=== PATIENT | male | born 1970 | race Hispanic/Latino ===

== ENCOUNTER 2017-03-17 00:12 | Emergency (ER) | payer BC ==
--- NOTE | 2017-03-17 09:23 | RAD ---
TWO VIEWS OF THE CHEST Comparison: 06-06-07 History: Cough. FINDINGS: Two views of the chest show normal sized cardiomediastinal silhouette. There is no evidence of consol idation, mass, or pleural effusion. The bones are unremarkable. The patient has a left nipple piercin g. IMPRESSION: No evidence of acute cardiopulmonary disease. POS: [facility]
== END 2017-03-17 02:51 | disposition home or self-care (01) ==
LOC: ERS 00:12
DX: J18.9 Pneumonia, unspecified organism (principal); F17.210 Nicotine dependence, cigarettes, uncomplicated
CPT/HCPCS: 71046; 87081; 87430

== ENCOUNTER 2017-03-17 16:55 | Emergency (ER) | payer BC ==
[2017-03-17 17:31] LABS: #Basophils 0.1 thou/uL (0.0-0.2); #Lymphocytes 0.6 thou/uL (1.20-3.40); #Monocytes 0.8 thou/uL (0.11-0.59); #Neutrophils 4.7 thou/uL (1.40-6.50); %Basophils 1.2 % (0.0-1.0); %Eosinophils 0.3 % (0.0-10.0); %Lymphocytes 10.2 % (21.0-51.0); %Monocytes 12.3 % (0.0-10.0); %Neutrophils 76.2 % (42.0-75.0); Hemoglobin 13.9 g/dL (14.0-18.0); Mean Corpuscular HGB CONC 33.4 g/dL (32.0-36.0); Mean Corpuscular Hemoglobin 31.4 pg (27.0-31.0); Mean Corpuscular Volume 93.9 fl (80.0-94.0); Mean Platelet Volume 6.9 fL (7.4-10.4); Platelet Count 274 thou/uL (130-400); RBC Distribution Width 12.1 % (11.5-14.5); Red Blood Cell (RBC) Count 4.43 mill/uL (4.70-6.10); White Blood Cell (WBC) Count 6.1 thou/uL (4.8-10.8)
[2017-03-17 18:00] LABS: ALT (SGPT) 25 U/L (8-55); AST (SGOT) 43 U/L (5-34); Albumin 3.8 g/dL (3.5-5.0); Alkaline Phosphatase 77 U/L (40-150); Anion Gap 12 mmol/L (10-20); BUN (Urea Nitrogen) 12 mg/dL (8.9-20.6); Bilirubin, Total 0.6 mg/dL (0.2-1.2); Calc. Creatinine Clearance 0 mL/min (70-130); Calcium 8.9 mg/dL (7.8-10.44); Carbon Dioxide 26 mmol/L (22-29); Chloride 104 mmol/L (98-107); Estimated GFR-MDRD Greater than 90; Glucose 119 mg/dL (70-105); Lipase 13 U/L (8-78); Potassium 3.7 mmol/L (3.5-5.1); Protein, Total 6.8 g/dL (6.0-8.3); Sodium 138 mmol/L (136-145)
--- NOTE | 2017-03-17 18:03 | CT ---
NONCONTRAST CT ABDOMEN AND PELVIS 03/17/17 HISTORY: Left flank pain. Patient states back pain that radiates to the left sided ribs with onset of symptoms last night and associated coughing. COMPARISON: None available. FINDINGS: There are a few punctate nonobstructing calculi in the inferior pole left kidney. No right renal calc ulus is present. There is no evidence of hydronephrosis. Near the region of the right UVJ and at the base of the urinary bladder there is an approximately 3 mm calculus present. This is thought to be ju st within the right UVJ, but again, there is no hydroureter or hydronephrosis seen on the right. Atelectasis is present at the left lung base. There is slight heterogeneity of the liver which may re present fatty infiltration with areas of fatty sparing. The spleen, pancreas and bilateral adrenal glands demonstrate a normal CT appearance. The appendix is visualized and normal in caliber. No free fluid, fluid collection, or lymphadenopathy is seen in the abdomen or pelvis. No dilated loop s of bowel are seen. Osseous structures are intact. IMPRESSION: 1. Findings likely related to a calculus either at the right UVJ or just within the base of the urinary bladder adjacent to the right UVJ measuring 3 mm. There is no right hydronephrosis or hydrour eter. 2. Tiny punctate nonobstructing inferior pole left renal calculi. 3. Heterogeneity of the liver which may represent fatty infiltration with areas of fatty sparing . Correlation with liver function tests may be helpful for further evaluation. POS: [facility]
[2017-03-17] MEDS ORDERED: Ketorolac Tromethamine 30 MG/ML VIAL ONE (18:35)
== END 2017-03-17 19:13 | disposition home or self-care (01) ==
LOC: ERS 16:55
DX: N20.2 Calculus of kidney with calculus of ureter (principal); F17.210 Nicotine dependence, cigarettes, uncomplicated; Z79.899 Other long term (current) drug therapy
CPT/HCPCS: 71046; 74176; 80053; 83690; 85025; 87081; 87430; 96374; J1885

== ENCOUNTER 2019-03-15 13:56 | Observation (INO) | payer BC ==
[~2019-03-15 13:56] MED LIST: Iopamidol-370 76% 500 ML 1 ML ONE
--- NOTE | 2019-03-15 14:26 | RAD ---
XR Chest 1 View Portable HISTORY: Blurred vision, weakness COMPARISON: 03/17/2017 FINDINGS: The heart size is stable. The lungs are well expanded without focal areas of consolidation, pneumothorax or pleural effusions. IMPRESSION: No radiographic evidence of acute cardiopulmonary process.
[2019-03-15 14:36] LABS: #Basophils 0.1 thou/uL (0.0-0.2); #Eosinphils 0.1 thou/uL (0.0-0.7); #Lymphocytes 2.6 thou/uL (1.20-3.40); #Monocytes 0.9 thou/uL (0.11-0.59); #Neutrophils 6.1 thou/uL (1.40-6.50); %Basophils 0.9 % (0.0-1.0); %Eosinophils 1.4 % (0.0-10.0); %Monocytes 9.5 % (0.0-10.0); %Neutrophils 62.3 % (42.0-75.0); Hemoglobin 14.5 g/dL (14.0-18.0); Mean Corpuscular HGB CONC 34.1 g/dL (32.0-36.0); Mean Corpuscular Hemoglobin 31.1 pg (27.0-31.0); Mean Corpuscular Volume 91.2 fL (78.0-98.0); Mean Platelet Volume 7.4 fL (7.4-10.4); Platelet Count 371 thou/uL (130-400); RBC Distribution Width 12.1 % (11.5-14.5); Red Blood Cell (RBC) Count 4.66 mill/uL (4.70-6.10); White Blood Cell (WBC) Count 9.8 thou/uL (4.8-10.8)
[2019-03-15 14:55] LABS: ALT (SGPT) 18 U/L (8-55); AST (SGOT) 47 U/L (5-34); Albumin 3.5 g/dL (3.5-5.0); Alkaline Phosphatase 91 U/L (40-110); Anion Gap 9 mmol/L (10-20); BUN (Urea Nitrogen) 18 mg/dL (8.4-25.7); Bilirubin, Total 0.4 mg/dL (0.2-1.2); Calc. Creatinine Clearance 0 mL/min (70-130); Calcium 8.6 mg/dL (7.8-10.44); Carbon Dioxide 27 mmol/L (22-29); Chloride 108 mmol/L (98-107); Estimated GFR-MDRD 45; Globulin 3.1 g/dL (2.4-3.5); Glucose 114 mg/dL (70-105); Protein, Total 6.6 g/dL (6.0-8.3); Sodium 140 mmol/L (136-145)
--- NOTE | 2019-03-15 15:15 | CT ---
CT Aortic Dissection Protocol HISTORY: Abdominal pain, blurred vision, hypertension, right arm numbness COMPARISON: None. FINDINGS: The thoracoabdominal aorta is of normal caliber without intimal flap. There is no evidence of dissect ion or aneurysm. The aortic lumen is well opacified. There is good flow in the renal arteries, celiac axis, SMA and NOHEMY. No significant stenosis at the origins is seen. No pleural or pericardial effusions are identified. No pneumothoraces, focal areas of consolidation, lung nodules or masses are seen. There is fatty infiltration of the liver. The gallbladder is contracted. The spleen, pancreas, adrena l glands and kidneys appear normal. No free air or free fluid is seen in the abdomen. There are degenerative changes in the thoracic lumbar spine. IMPRESSION: No CT evidence of aortic aneurysm or dissection.
[2019-03-15] MEDS ORDERED: hydrALAZINE 20 MG/ML VIAL ONE (15:33)
--- NOTE | 2019-03-15 16:39 | PDOC.FPRHP ---
- History of Present Illness Chief Complaint: Blurry vision and elevated BP History of Present Illness: 49 yo male with no PMH presents for evaluation of elevated BP and blurry vision. Patient reports his BP he checked at home was approximately 200/113 and he felt funny. He notes he has a machine at home and this surprised him. He notes his blurry vision is likely secondary to being sleep deprived from an overnight shift at work. He also notes he had some right hand/finger tingling, but attributes that to sleeping on his side. He notes that he has not had any chest pain, unilateral weakness, or headaches. He reports that he has never been told he has BP issues and has not seen a physician in almost 2 years. No other complaints. ED Course: 20 mg IV Hydralazine - Allergies/Adverse Reactions Allergies Allergy/AdvReac Type Severity Reaction Status Date / Time No Known Allergies Allergy Unverified 03/15/19 17:43 - History PMHx:None PSHx: None FHx: Heart Disease, DM Social: 1/2 pack per day smoking. Previous 20 year pack history and just recently restarted. No illicit drug use. Social alcohol use. - Review of Systems General: denies: fever/chills, weight/appetite/sleep changes ENT: denies: nasal congestion, rhinorrhea Respiratory: denies: cough, congestion, shortness of breath Cardiovascular: denies: chest pain, palpitation Gastrointestinal: denies: nausea, vomiting, diarrhea Genitourinary: denies: dysuria, polyuria Skin: denies: rashes, lesions Musculoskeletal: denies: pain, tenderness, stiffness, swelling Neurological: reports: numbness. denies: syncope, seizure Psychological: denies: anxiety, depression - Vital signs BP: 159/86 HR: 92 RR: 17 Tmax: 98.2 Pox: 98% on RoomAir Wt: 113 kg - Physical Exam Constitutional: NAD, awake, alert and oriented HEENT: normocephalic and atraumatic, PERRLA, grossly normal vision, grossly normal hearing, normal nasal mucosa Neck: supple, FROM Chest: no-tender to palpation Heart: RRR, normal S1/S2, no murmurs/rubs/gallops Lungs: CTAB, no respiratory distress Abdomen: soft, non-tender, bowel sounds present Musculoskeletal: normal structure, normal tone, ROM grossly normal Neurological: no focal deficit, CN II-XII intact, normal sensation Skin: no rash/lesions, good turgor, capillary refill <2 seconds Heme/Lymphatic: no unusual bruising or bleeding, no purpura Psychiatric: normal mood and affect, good judgment and insight, intact recent and remote memory FMR H&P: Results - Labs Result Diagrams: 03/15/19 14:26 03/15/19 14:26 Lab results: WBC 9.8 thou/uL (4.8-10.8) 03/15/19 14:26 Hgb 14.5 g/dL (14.0-18.0) 03/15/19 14:26 Hct 42.5 % (42.0-52.0) 03/15/19 14: MCV 91.2 fL (78.0-98.0) 03/15/19 14:26 Plt Count 371 thou/uL (130-400) 03/15/19 14:26 Neutrophils % 62.3 % (42.0-75.0) 03/15/19 14:26 Sodium 140 mmol/L (136-145) 03/15/19 14:26 Potassium 4.0 mmol/L (3.5-5.1) 03/15/19 14:26 Chloride 108 mmol/L (98-107) H 03/15/19 14:26 Carbon Dioxide 27 mmol/L (22-29) 03/15/19 14:26 BUN 18 mg/dL (8.4-25.7) 03/15/19 14:26 Creatinine 1.64 mg/dL (0.7-1.3) H 03/15/19 14:26 Glucose 114 mg/dL (70-105) H 03/15/19 14:26 Calcium 8.6 mg/dL (7.8-10.44) 03/15/19 14:26 Total Bilirubin 0.4 mg/dL (0.2-1.2) 03/15/19 14:26 AST 47 U/L (5-34) H 03/15/19 14:26 ALT 18 U/L (8-55) 03/15/19 14:26 Alkaline Phosphatase 91 U/L (40-110) 03/15/19 14:26 Serum Total Protein 6.6 g/dL (6.0-8.3) 03/15/19 14:26 Albumin 3.5 g/dL (3.5-5.0) 03/15/19 14:26 - EKG Interpretation EK lead EKG shows normal sinus rhythm, Rate (beats per minute): 86, with no ectopics, Conduction normal, ST segments normal, T waves normal, Ethel normal, Clinical impression: Normal EKG. FMR H&P: A/P - Problem List (1) Hypertensive urgency Current Visit: Yes Status: Acute Code(s): I16.0 - HYPERTENSIVE URGENCY (2) ROSELINE (acute kidney injury) Current Visit: Yes Status: Acute Code(s): N17.9 - ACUTE KIDNEY FAILURE, UNSPECIFIED - Plan 1. HTN urgency - No chronic BP treatment - s/p 1 dose 20 mg Hydralazine with good control - continue cardiac monitoring - trend troponins - Initiate chronic BP treatment in AM - labs ordered to risk stratify 2. ROSELINE - Baseline in 2018 <1.0 - Gentle IVF - Control BP PCP: Dr. Quesada CODE STATUS: FULL CODE Disposition: Stable, will admit for observation for further evaluation and management.
[2019-03-15 16:40] LABS: Troponin I 0.011 ng/mL (< 0.028)
[2019-03-15] MEDS ORDERED: Ondansetron ODT 4 MG TAB SL PRN (17:43)
[2019-03-15] MEDS ORDERED: Ondansetron PF 4 MG/2 ML Vial IVP PRN (17:43)
[2019-03-15 17:49] VITALS: BMI 39.3
[2019-03-15] MEDS ORDERED: hydrALAZINE 20 MG/ML VIAL SLOW IVP PRN ×2 (18:13→18:23)
[2019-03-15] MEDS ORDERED: Ondansetron ODT 4 MG TAB PO PRN (18:13)
[2019-03-15] MEDS: Lactated Ringer's 1,000 ML IV SCH (19:11)
[2019-03-15 19:59] LABS: Phosphorus 1.9 mg/dL (2.3-4.7)
[2019-03-15 20:05] LABS: Troponin I Less than 0.010 ng/mL (< 0.028)
[2019-03-15] MEDS: PHOS-NAK 1 PKT PACK PO SCH (21:50)
[2019-03-16] MEDS: Lactated Ringer's 1,000 ML IV SCH (05:04)
[2019-03-16 05:35] LABS: Anion Gap 10 mmol/L (10-20); BUN (Urea Nitrogen) 17 mg/dL (8.4-25.7); Calc. Creatinine Clearance 122 mL/min (70-130); Calcium 8.3 mg/dL (7.8-10.44); Carbon Dioxide 26 mmol/L (22-29); Cardiac Risk 5.4 (Less than 4.5); Chloride 107 mmol/L (98-107); Cholesterol 167 mg/dl (< 200 Desired); Estimated GFR-MDRD 67; Glucose 107 mg/dL (70-105); HDL Cholesterol 31 mg/dL (>60 Neg Risk); LDL Cholesterol, Calculated 99 mg/dL; Potassium 4.1 mmol/L (3.5-5.1); Sodium 139 mmol/L (136-145); Triglycerides 185 mg/dL (Less than 150)
[2019-03-16] MEDS: Acetaminophen 325 MG TAB PO PRN ×2 (05:38→10:20)
--- NOTE | 2019-03-16 05:45 | PDOC.FM ---
- Subjective Subjective: Pt states he is feeling better this morning. Denies any continuation of his blurred vision. States that he has not seen a doctor in quite a while because he had been feeling well. Is agreeable to starting oral antihypertensives today and closely following up with Dr. Quesada, his PCP. Pt able to take home BP - instructed to keep log of PCP follow up. - Objective Vital Signs & Weight: Vital Signs (12 hours) Temp Pulse Resp BP BP Pulse Ox 03/16/19 05:01 70 173/102 H 03/16/19 04:00 98.0 F 76 18 175/99 H 98 03/16/19 00:00 82 15 169/92 H 03/15/19 20:05 98.2 F 75 16 150/72 H 98 Weight Weight 112.899 kg I&O: 03/14/19 03/15/19 03/16/19 06:59 06:59 06:59 Intake Total 1461 Balance 1461 Result Diagrams: 03/15/19 14:26 03/16/19 04:46 Phys Exam - Physical Examination Constitutional: NAD HEENT: moist MMs, sclera anicteric Neck: full ROM Respiratory: no wheezing, no rales, no rhonchi, clear to auscultation bilateral Cardiovascular: RRR, no significant murmur Gastrointestinal: soft, non-tender Obese Musculoskeletal: no edema, pulses present Neurological: moves all 4 limbs Psychiatric: normal affect, A&O x 3 Skin: cap refill <2 seconds Dx/Plan (1) ROSELINE (acute kidney injury) Code(s): N17.9 - ACUTE KIDNEY FAILURE, UNSPECIFIED Status: Resolved (2) Hypertensive urgency Code(s): I16.0 - HYPERTENSIVE URGENCY Status: Acute - Plan Plan: HTN urgency - Risk stratification labs - A1C: 6 - FLP, mildly elevated TG's, otherwise normal - TSH nml - Troponins remained negative - Will initiate lisinopril/hctz this morning, trend BP's for the remainder of the day and likely DC early this afternoon with close PCP f/u ROSELINE - Resolving w/ BP improvement and gentle IVF PCP: Dr. Quesada CODE STATUS: FULL CODE Disposition: Expect DC later today following PO anti-hypertensive this am and trending BP Addendum - Attending - Attending Attestation Date/Time: 03/16/19 1327 I personally evaluated the patient and discussed the management with Dr. Bernard I agree with the History, Examination, Assessment and Plan documented above with any addition or exceptions noted below. Patient feeling better this AM denies blurred vision, MEDEIROS, chest pain. His ROSELINE improved gradual lowering of BP with start of po medication and close outpatient f/u with PCP.
[2019-03-16] MEDS: PHOS-NAK 1 PKT PACK PO SCH (08:24)
[2019-03-16] MEDS ORDERED: Lisinopril/Hydrochlorothiazide 10 mg/12.5 mg Tablet PO SCH (11:00)
[2019-03-16 11:55] VITALS: BP 152/89; TEMP 97.9
--- NOTE | 2019-03-16 20:45 | DIS ---
DATE OF ADMISSION: 03/15/2019 DATE OF DISCHARGE: 03/16/2019 ADMITTING ATTENDING: Becky Rome MD DISCHARGE ATTENDING: Amanuel Dodson MD. CONSULT: None. PROCEDURES: None. RESIDENT: Kike Bernard DO. IMAGING: Chest x-ray, finding, no radiographic evidence of acute cardiopulmonary process. CT aortic dissection protocol, findings; no CT evidence of aortic aneurysm or dissection. PRIMARY DIAGNOSES: Hypertensive emergency, acute kidney injury. DISCHARGE MEDICATIONS: Lisinopril hydrochlorothiazide 10/12.5 mg one tablet daily. HISTORY OF PRESENT ILLNESS AND HOSPITAL COURSE: A 49-year-old male with no past medical history, presented to the ED for evaluation of elevated blood pressure and blurred vision. The patient reported blood pressure at home of 200/113, as well as blurred vision that had started that day. Workup in the ED showed pressures of greater than 200 systolic. The patient was given 20 mg of IV hydralazine reducing his pressure to 159/86. By the time of evaluation, the patient stated that his vision had improved and denied any symptoms. Laboratory workup was significant for a creatinine of 1.64, this was an elevation from his previous baseline of 0.8. The patient was subsequently admitted to the hospital for blood pressure monitoring and treatment of his hypertensive emergency. The patient received another dose of 20 mg of hydralazine the following morning, which continued to maintain his blood pressures less than 180 systolic. On the time of evaluation the day of discharge, the patient was completely asymptomatic. His repeat creatinine showed improvement and resolution of his ROSELINE with a creatinine within normal limits of 1.15. The patient also had a fasting lipid panel that was overall normal aside from mildly elevated triglycerides at 185. The patient's hemoglobin A1c resulted at 6.0. The patient was subsequently started on a combination of lisinopril and hydrochlorothiazide to continue as an outpatient. The patient was educated on the importance of close outpatient followup for monitoring of his blood pressure and his prediabetes. The patient expressed understanding and agreed to follow up with his PCP, Dr. Quesada closely. DISCHARGE INSTRUCTIONS: 1. Location: Home. 2. Diet: Carb conscious. 3. Activity: No restrictions. 4. Follow up with PCP, Dr. Quesada within 7 days. Job ID: [id number]
[2019-03-17] MEDS ORDERED: Lisinopril/Hydrochlorothiazide 10 mg/12.5 mg Tablet PO SCH (09:00)
== END 2019-03-16 14:11 | disposition home or self-care (01) ==
LOC: ERS 13:56 → 2SW 17:47
PROVIDERS: ADMIT Family Medicine; ATTEND Family Medicine
DX: I16.1 Hypertensive emergency (principal); I10 Essential (primary) hypertension; N17.9 Acute kidney failure, unspecified; F17.210 Nicotine dependence, cigarettes, uncomplicated
CPT/HCPCS: 36415; 71045; 71275; 72191; 74175; 80048; 80053; 80061; 83036; 83735; 84100; 84443; 84484; 85025; 93005; 96361; 96374; 96376; G0378; J0360; Q9967

== ENCOUNTER 2024-02-07 11:27 | Inpatient (IN) | payer BC ==
[2024-02-07 12:35] LABS: #Basophils Less than 0.03 10x3/uL (0.0-0.2); #Eosinophils Less than 0.03 10x3/uL (0.0-0.7); %Basophils 0.2 % (0.0-1.0); %Lymphocytes 3.3 % (21.0-51.0); %Monocytes 7.6 % (0.0-10.0); %Neutrophils 88.2 % (42.0-75.0); Hematocrit 25.6 % (42.0-52.0); Hemoglobin 8.6 g/dL (14.0-18.0); Mean Corpuscular HGB CONC 33.6 g/dL (32.0-36.0); Mean Corpuscular Hemoglobin 30.3 pg (27.0-31.0); Mean Corpuscular Volume 90.1 fL (78.0-98.0); Mean Platelet Volume 9.2 fL (7.4-10.4); Platelet Count 266 10x3/uL (130-400); RBC Distribution Width 13.9 % (11.5-14.5); Red Blood Cell (RBC) Count 2.84 mill/uL (4.70-6.10)
[2024-02-07 12:49] LABS: Actual Bicarbonate (HCO3v) 26.4 mEq/L (22-28); Base Excess 2.2 mEq/L (-2.0 to +3.0); Calcium, Ionized (venous) 0.93 mmol/L (1.16-1.32); Chloride (VBG) 92 mmol/L (98-106); Hematocrit-VBG 31 % (42.0-52.0); Hemoglobin (Hb) 10.6 g/dL (13.1-17.2); Potassium (VBG) 4.32 mmol/L (3.70-5.30); Sodium 133 mmol/L (133-146)
[2024-02-07 12:52] LABS: ALT (SGPT) 11 U/L (8-55); AST (SGOT) 30 U/L (5-34); Albumin 3.1 g/dL (3.5-5.0); Alkaline Phosphatase 58 U/L (40-110); Anion Gap 18 mmol/L (10-20); BUN (Urea Nitrogen) 59 mg/dL (8.4-25.7); Bilirubin, Total 0.5 mg/dL (0.2-1.2); Calc. Creatinine Clearance 0 mL/min (70-130); Carbon Dioxide 24 mmol/L (22-29); Chloride 94 mmol/L (98-107); Estimated GFR 6; Globulin 4.4 g/dL (2.4-3.5); Glucose 127 mg/dL (70-105); Lipase 20 U/L (8-78); Magnesium 1.8 mg/dL (1.6-2.6); Potassium 4.3 mmol/L (3.5-5.1); Protein, Total 7.5 g/dL (6.0-8.3); Sodium 132 mmol/L (136-145)
[2024-02-07 12:57] LABS: Troponin I 0.015 ng/mL (< 0.028)
[2024-02-07] MEDS ORDERED: Acetaminophen 500 MG TAB ONE (13:01)
[2024-02-07] MEDS ORDERED: Sodium Chloride 0.9% 100 ML ONE (13:02)
[2024-02-07] MEDS ORDERED: Cefepime 2 GM VIAL ONE (13:02)
[2024-02-07 14:44] LABS: Bacteria/HPF None Seen HPF (None Seen); Bilirubin Negative (Negative); Blood, Urine 2+ (Negative); CAUTI Indications for Culture Fever or rigors; Clarity Clear (Clear); Glucose, Urine (Dipstick) 200 mg/dL (Negative); Ketone, Urine 10 mg/dL (Negative); Leukocyte Negative Leu/uL (Negative); Nitrite Negative (Negative); Protein, Urine (Dipstick) 300 mg/dL (Neg-Trace); RBC/HPF 21-50 HPF (0-3); Specific Gravity, Urine 1.005 (1.002-1.036); Squamous Epithelial 0-3 HPF (0-3); Urobilinogen Normal mg/dL (Less than 2)
[2024-02-07 14:47] LABS: Urine Culture Reflex No No
[2024-02-07 15:51] VITALS: BMI 38.2
[2024-02-07] MEDS: Vancomycin (BATCH) 2 GM in Premix 1 BAG IVPB ONE (15:53)
[2024-02-07] MEDS ORDERED: Bisacodyl 5 MG TAB PO PRN (16:12)
[2024-02-07] MEDS ORDERED: Ondansetron ODT 4 MG TAB PO PRN (16:12)
[2024-02-07] MEDS ORDERED: Dextrose 50% Abboject 50 ML SYRINGE SLOW IVP PRN (16:32)
[2024-02-07] MEDS ORDERED: Glucagon 1 MG/ML KIT IM PRN (16:32)
[2024-02-07] MEDS ORDERED: Insulin Regular, Human 100 UNIT/ML 10 ML VIAL SC PRN (16:32)
[2024-02-07] MEDS ORDERED: Insulin Lispro 100 UNIT/ML 10 ML VIAL SC PRN (16:32)
[2024-02-07] MEDS ORDERED: Dextrose 5% in Water 1,000 ML IV PRN (16:32)
[2024-02-07] MEDS ORDERED: Lidocaine 1% w/Epinephrine 1:100K 20 ML VIAL ONE (16:36)
[2024-02-07] MEDS ORDERED: Carvedilol 25 MG TAB ONE (17:56)
[2024-02-07] MEDS: Sevelamer Carbonate 800 MG TAB PO SCH (18:01)
[2024-02-07] MEDS: Carvedilol 25 MG TAB PO SCH (18:02)
[2024-02-07] MEDS: EPOETIN ALFA-EPBX (ESRD) 10,000 UNITS/ML VIAL SC SCH (18:02)
[2024-02-07] MEDS ORDERED: Vancomycin Dialysis Sliding Scale (Wt > 99) FS SCH (18:45)
[2024-02-07] MEDS: Atorvastatin Calcium 10 MG TAB PO SCH (21:51)
[2024-02-07] MEDS: Acetaminophen 325 MG TAB PO SCH (21:51)
[2024-02-07] MEDS: Heparin 5,000 UNITS/ML VIAL SC SCH (21:51)
[2024-02-08] MEDS ORDERED: Cefepime 2 GM in Sodium Chloride 0.9% 100 ML IVPB SCH (00:01)
[2024-02-08] MEDS ORDERED: VANCOMYCIN IVPB SCH (01:30)
[2024-02-08 04:43] LABS: #Basophils 0.04 10x3/uL (0.0-0.2); #Eosinophils Less than 0.03 10x3/uL (0.0-0.7); %Basophils 0.4 % (0.0-1.0); %Eosinophils 0.1 % (0.0-10.0); %Lymphocytes 4.7 % (21.0-51.0); %Monocytes 10.6 % (0.0-10.0); %Neutrophils 83.6 % (42.0-75.0); Hematocrit 28.5 % (42.0-52.0); Hemoglobin 9.1 g/dL (14.0-18.0); Mean Corpuscular HGB CONC 31.9 g/dL (32.0-36.0); Mean Corpuscular Hemoglobin 29.5 pg (27.0-31.0); Mean Corpuscular Volume 92.5 fL (78.0-98.0); Mean Platelet Volume 9.6 fL (7.4-10.4); Platelet Count 237 10x3/uL (130-400); RBC Distribution Width 14.2 % (11.5-14.5); Red Blood Cell (RBC) Count 3.08 mill/uL (4.70-6.10)
[2024-02-08 05:00] LABS: ALT (SGPT) 17 U/L (8-55); AST (SGOT) 41 U/L (5-34); Albumin 2.7 g/dL (3.5-5.0); Alkaline Phosphatase 63 U/L (40-110); Anion Gap 20 mmol/L (10-20); BUN (Urea Nitrogen) 74 mg/dL (8.4-25.7); Bilirubin, Total 0.4 mg/dL (0.2-1.2); Calc. Creatinine Clearance 11 mL/min (70-130); Calcium 7.5 mg/dL (7.8-10.44); Carbon Dioxide 23 mmol/L (22-29); Chloride 96 mmol/L (98-107); Estimated GFR 5; Globulin 4.3 g/dL (2.4-3.5); Glucose 116 mg/dL (70-105); Potassium 4.6 mmol/L (3.5-5.1); Sodium 134 mmol/L (136-145)
[2024-02-08] MEDS: Acetaminophen 325 MG TAB PO SCH (06:05)
[2024-02-08] MEDS: Levothyroxine Sodium 100 MCG TAB PO SCH (06:06)
[2024-02-08] MEDS: Pantoprazole DR 40 MG TAB PO SCH (08:58)
[2024-02-08 10:14] LABS: Phosphorus 7.1 mg/dL (2.3-4.7)
[2024-02-08] MEDS ORDERED: Heparin 10,000 UNITS/ 10 ML VIAL ONE (11:05)
[2024-02-08 11:34] LABS: HBsAg Index 0.28 S/CO (0-0.99); Hep B Core Total Ab NONREACTIVE (NonReactive); Hep B Core Total Index 0.14 S/CO (0-0.79); Hep B Surf AB REACTIVE (NonReactive); Hep B Surf Ag NONREACTIVE S/CO (NonReactive); Hep C IgG Ab NONREACTIVE S/CO (NonReactive); Hep C Index 0.07 S/CO (0-0.79)
[2024-02-08] MEDS ORDERED: Cefepime 1 GM in Sodium Chloride 0.9% 100 ML IVPB SCH (13:00)
[2024-02-08] MEDS: CEFAZOLIN 1 GM in Sodium Chloride 0.9% 100 ML IVPB SCH (19:23)
[2024-02-09] MEDS: Acetaminophen 325 MG TAB PO SCH (01:12)
[2024-02-09 06:39] LABS: #Basophils 0.04 10x3/uL (0.0-0.2); %Basophils 0.4 % (0.0-1.0); %Eosinophils 1.2 % (0.0-10.0); %Lymphocytes 8.5 % (21.0-51.0); %Monocytes 12.9 % (0.0-10.0); %Neutrophils 76.3 % (42.0-75.0); Hematocrit 28.8 % (42.0-52.0); Hemoglobin 9.4 g/dL (14.0-18.0); Mean Corpuscular HGB CONC 32.6 g/dL (32.0-36.0); Mean Corpuscular Hemoglobin 30.9 pg (27.0-31.0); Mean Corpuscular Volume 94.7 fL (78.0-98.0); Mean Platelet Volume 9.6 fL (7.4-10.4); Platelet Count 214 10x3/uL (130-400); RBC Distribution Width 14.4 % (11.5-14.5); Red Blood Cell (RBC) Count 3.04 mill/uL (4.70-6.10)
[2024-02-09 06:50] LABS: ALT (SGPT) 19 U/L (8-55); AST (SGOT) 35 U/L (5-34); Albumin 2.6 g/dL (3.5-5.0); Alkaline Phosphatase 87 U/L (40-110); Anion Gap 18 mmol/L (10-20); BUN (Urea Nitrogen) 45 mg/dL (8.4-25.7); Bilirubin, Total 0.3 mg/dL (0.2-1.2); Calc. Creatinine Clearance 16 mL/min (70-130); Calcium 7.7 mg/dL (7.8-10.44); Carbon Dioxide 21 mmol/L (22-29); Chloride 101 mmol/L (98-107); Estimated GFR 7; Globulin 4.9 g/dL (2.4-3.5); Glucose 155 mg/dL (70-105); Potassium 4.3 mmol/L (3.5-5.1); Protein, Total 7.5 g/dL (6.0-8.3); Sodium 136 mmol/L (136-145)
[2024-02-09 07:55] LABS: Vancomycin, Trough 24.7 ug/mL
[2024-02-09] MEDS: Carvedilol 6.25 MG TAB PO SCH (16:41)
[2024-02-10 06:16] LABS: #Basophils 0.03 10x3/uL (0.0-0.2); %Basophils 0.2 % (0.0-1.0); %Eosinophils 1.5 % (0.0-10.0); %Lymphocytes 13.4 % (21.0-51.0); %Monocytes 13.2 % (0.0-10.0); %Neutrophils 69.9 % (42.0-75.0); Hematocrit 26.9 % (42.0-52.0); Hemoglobin 8.8 g/dL (14.0-18.0); Mean Corpuscular HGB CONC 32.7 g/dL (32.0-36.0); Mean Corpuscular Hemoglobin 30.1 pg (27.0-31.0); Mean Corpuscular Volume 92.1 fL (78.0-98.0); Platelet Count 218 10x3/uL (130-400); RBC Distribution Width 14.4 % (11.5-14.5); Red Blood Cell (RBC) Count 2.92 mill/uL (4.70-6.10)
[2024-02-10 06:38] LABS: ALT (SGPT) 10 U/L (8-55); AST (SGOT) 45 U/L (5-34); Albumin 2.5 g/dL (3.5-5.0); Alkaline Phosphatase 102 U/L (40-110); Anion Gap 21 mmol/L (10-20); BUN (Urea Nitrogen) 72 mg/dL (8.4-25.7); Bilirubin, Total 0.3 mg/dL (0.2-1.2); Calc. Creatinine Clearance 13 mL/min (70-130); Calcium 7.6 mg/dL (7.8-10.44); Carbon Dioxide 20 mmol/L (22-29); Chloride 97 mmol/L (98-107); Estimated GFR 6; Globulin 4.8 g/dL (2.4-3.5); Glucose 103 mg/dL (70-105); Potassium 4.5 mmol/L (3.5-5.1); Protein, Total 7.3 g/dL (6.0-8.3); Sodium 133 mmol/L (136-145)
[2024-02-10] MEDS ORDERED: Heparin 10,000 UNITS/ 10 ML VIAL ONE (11:09)
[2024-02-11 04:07] LABS: #Basophils 0.04 10x3/uL (0.0-0.2); %Basophils 0.4 % (0.0-1.0); %Eosinophils 1.6 % (0.0-10.0); %Lymphocytes 16.3 % (21.0-51.0); %Monocytes 14.4 % (0.0-10.0); %Neutrophils 63.3 % (42.0-75.0); Hematocrit 28.2 % (42.0-52.0); Mean Corpuscular HGB CONC 31.9 g/dL (32.0-36.0); Mean Corpuscular Hemoglobin 29.3 pg (27.0-31.0); Mean Corpuscular Volume 91.9 fL (78.0-98.0); Mean Platelet Volume 9.9 fL (7.4-10.4); Platelet Count 227 10x3/uL (130-400); RBC Distribution Width 14.5 % (11.5-14.5); Red Blood Cell (RBC) Count 3.07 mill/uL (4.70-6.10)
[2024-02-11 04:21] LABS: ALT (SGPT) 15 U/L (8-55); AST (SGOT) 77 U/L (5-34); Albumin 2.6 g/dL (3.5-5.0); Alkaline Phosphatase 114 U/L (40-110); Anion Gap 19 mmol/L (10-20); BUN (Urea Nitrogen) 51 mg/dL (8.4-25.7); Bilirubin, Total 0.4 mg/dL (0.2-1.2); Calc. Creatinine Clearance 15 mL/min (70-130); Calcium 7.2 mg/dL (7.8-10.44); Carbon Dioxide 23 mmol/L (22-29); Chloride 99 mmol/L (98-107); Estimated GFR 7; Globulin 3.8 g/dL (2.4-3.5); Glucose 112 mg/dL (70-105); Potassium 4.8 mmol/L (3.5-5.1); Protein, Total 6.4 g/dL (6.0-8.3); Sodium 136 mmol/L (136-145)
[2024-02-11] MEDS: Amlodipine 10 MG TAB PO SCH (10:59)
[2024-02-11] MEDS: NIFEdipine XL 30 MG ER.TAB PO SCH (12:20)
[2024-02-11] MEDS: NIFEdipine XL 60 MG ER.TAB PO SCH (20:09)
[2024-02-12 04:24] LABS: #Basophils 0.03 10x3/uL (0.0-0.2); %Basophils 0.3 % (0.0-1.0); %Eosinophils 1.8 % (0.0-10.0); %Lymphocytes 16.9 % (21.0-51.0); %Monocytes 16.1 % (0.0-10.0); %Neutrophils 60.1 % (42.0-75.0); Hemoglobin 8.7 g/dL (14.0-18.0); Mean Corpuscular HGB CONC 32.2 g/dL (32.0-36.0); Mean Corpuscular Volume 93.1 fL (78.0-98.0); Mean Platelet Volume 10.2 fL (7.4-10.4); Platelet Count 239 10x3/uL (130-400); RBC Distribution Width 14.6 % (11.5-14.5)
[2024-02-12 04:58] LABS: ALT (SGPT) 20 U/L (8-55); AST (SGOT) 111 U/L (5-34); Albumin 2.6 g/dL (3.5-5.0); Alkaline Phosphatase 125 U/L (40-110); Anion Gap 20 mmol/L (10-20); BUN (Urea Nitrogen) 69 mg/dL (8.4-25.7); Bilirubin, Total 0.4 mg/dL (0.2-1.2); Calc. Creatinine Clearance 12 mL/min (70-130); Calcium 7.1 mg/dL (7.8-10.44); Carbon Dioxide 23 mmol/L (22-29); Chloride 98 mmol/L (98-107); Estimated GFR 5; Globulin 3.7 g/dL (2.4-3.5); Glucose 143 mg/dL (70-105); Potassium 4.6 mmol/L (3.5-5.1); Protein, Total 6.3 g/dL (6.0-8.3); Sodium 136 mmol/L (136-145)
[2024-02-12] MEDS ORDERED: Amlodipine 5 MG TAB PO SCH (09:00)
[2024-02-12] MEDS ORDERED: NIFEdipine XL 30 MG ER.TAB PO SCH (09:00)
[2024-02-12 13:23] VITALS: TEMP 98.1
[2024-02-12 16:01] VITALS: BP 125/66
== END 2024-02-12 17:24 | disposition home or self-care (01) | DRG 314 ==
LOC: ERS 11:27 → ERHOLD 15:26 → 2NO 21:00
PROVIDERS: ADMIT Student in an Organized Health Care Education/Training Program; ATTEND Student in an Organized Health Care Education/Training Program
PROC: 0JPTXXZ Removal of Tunneled Vascular Access Device from Trunk Subcutaneous Tissue and Fascia, External Approach (ICD-10-PCS; principal; 2024-02-07)
PROC: 05PYX3Z Removal of Infusion Device from Upper Vein, External Approach (ICD-10-PCS; 2024-02-07)
PROC: 06HM33Z Insertion of Infusion Device into Right Femoral Vein, Percutaneous Approach (ICD-10-PCS; 2024-02-08)
PROC: 02HV33Z Insertion of Infusion Device into Superior Vena Cava, Percutaneous Approach (ICD-10-PCS; 2024-02-08)
DX: T80.211A Bloodstream infection due to central venous catheter, initial encounter (principal); A41.01 Sepsis due to Methicillin susceptible Staphylococcus aureus; N18.6 End stage renal disease; I12.0 Hypertensive chronic kidney disease with stage 5 chronic kidney disease or end stage renal disease; E87.20 Acidosis, unspecified; D63.1 Anemia in chronic kidney disease; R19.7 Diarrhea, unspecified; Z99.2 Dependence on renal dialysis; E11.22 Type 2 diabetes mellitus with diabetic chronic kidney disease; E03.9 Hypothyroidism, unspecified; Z79.890 Hormone replacement therapy; Z79.899 Other long term (current) drug therapy; I49.8 Other specified cardiac arrhythmias; R00.1 Bradycardia, unspecified
CPT/HCPCS: 36415; 36416; 70450; 71045; 80053; 80202; 81001; 82805; 83605; 83690; 83735; 83880; 84100; 84145; 84484; 85025; 86704; 86706; 86803; 87040; 87077; 87086; 87149; 87186; 87340; 87428; 90935; 93005; 93010; 93970; 96361; 96365; 96366; 96367; G0257; J0690; J0692; J1642; J1644; J3370

== ENCOUNTER 2024-02-15 11:06 | Inpatient (IN) | payer BC ==
[2024-02-15 11:36] LABS: #Basophils 0.04 10x3/uL (0.0-0.2); %Basophils 0.3 % (0.0-1.0); %Eosinophils 0.9 % (0.0-10.0); %Lymphocytes 13.7 % (21.0-51.0); %Monocytes 8.7 % (0.0-10.0); %Neutrophils 73.5 % (42.0-75.0); Hematocrit 26.8 % (42.0-52.0); Hemoglobin 8.6 g/dL (14.0-18.0); Mean Corpuscular HGB CONC 32.1 g/dL (32.0-36.0); Mean Corpuscular Hemoglobin 29.6 pg (27.0-31.0); Mean Corpuscular Volume 92.1 fL (78.0-98.0); Mean Platelet Volume 9.5 fL (7.4-10.4); Platelet Count 307 10x3/uL (130-400); RBC Distribution Width 14.6 % (11.5-14.5); Red Blood Cell (RBC) Count 2.91 mill/uL (4.70-6.10)
[2024-02-15 12:13] LABS: Troponin I 0.012 ng/mL (< 0.028)
[2024-02-15 12:18] LABS: ALT (SGPT) 10 U/L (8-55); AST (SGOT) 63 U/L (5-34); Albumin 2.8 g/dL (3.5-5.0); Alkaline Phosphatase 132 U/L (40-110); Anion Gap 20 mmol/L (10-20); BUN (Urea Nitrogen) 93 mg/dL (8.4-25.7); Bilirubin, Total 0.4 mg/dL (0.2-1.2); Calc. Creatinine Clearance 0 mL/min (70-130); Calcium 7.9 mg/dL (7.8-10.44); Carbon Dioxide 18 mmol/L (22-29); Chloride 100 mmol/L (98-107); Estimated GFR 3; Globulin 4.9 g/dL (2.4-3.5); Glucose 180 mg/dL (70-105); Potassium 4.5 mmol/L (3.5-5.1); Protein, Total 7.7 g/dL (6.0-8.3); Sodium 133 mmol/L (136-145)
[2024-02-15 13:12] LABS: Bacteria/HPF None Seen HPF (None Seen); Bilirubin Negative (Negative); Blood, Urine 2+ (Negative); CAUTI Indications for Culture Dysuria,urgency,freq; Clarity Clear (Clear); Glucose, Urine (Dipstick) 100 mg/dL (Negative); Ketone, Urine Negative (Negative); Leukocyte 75 Leu/uL (Negative); Nitrite Negative (Negative); Protein, Urine (Dipstick) 100 mg/dL (Neg-Trace); Specific Gravity, Urine 1.009 (1.002-1.036); Squamous Epithelial None Seen HPF (0-3); Urobilinogen Normal mg/dL (Less than 2)
[2024-02-15 13:16] LABS: Urine Culture Reflex Yes Yes
[2024-02-15] MEDS ORDERED: Heparin 10,000 UNITS/ 10 ML VIAL ONE (14:37)
[2024-02-15] MEDS ORDERED: Dextrose 5% in Water 1,000 ML IV PRN (19:44)
[2024-02-15] MEDS ORDERED: Insulin Lispro 100 UNIT/ML 10 ML VIAL SC PRN ×2 (19:44)
[2024-02-15] MEDS ORDERED: Dextrose 50% Abboject 50 ML SYRINGE SLOW IVP PRN (19:44)
[2024-02-15] MEDS ORDERED: Glucagon 1 MG/ML KIT IM PRN (19:44)
[2024-02-15] MEDS ORDERED: CEFAZOLIN 2 GM VIAL ONE (19:47)
[2024-02-15] MEDS ORDERED: Sodium Chloride 0.9% 100 ML ONE (19:47)
[2024-02-15 20:26] LABS: Hemoglobin A1c 5.5 % (4.0-6.0)
[2024-02-15 22:18] VITALS: BMI 39.2
[2024-02-16] MEDS: NIFEdipine XL 60 MG ER.TAB PO SCH ×2 (00:33→08:38)
[2024-02-16] MEDS: hydrALAZINE 20 MG/ML VIAL SLOW IVP PRN (00:50)
[2024-02-16] MEDS: CEFAZOLIN 1 GM in Sodium Chloride 0.9% 100 ML IVPB SCH ×2 (01:13→01:20)
[2024-02-16] MEDS: Acetaminophen 325 MG TAB PO PRN (01:24)
[2024-02-16] MEDS: Activase 2 MG VIAL CATH SCH ×3 (01:58)
[2024-02-16] MEDS: Sterile Water 10 ML VIAL IVP SCH ×2 (01:58)
[2024-02-16] MEDS: Levothyroxine Sodium 100 MCG TAB PO SCH (05:13)
[2024-02-16 05:33] LABS: #Basophils 0.04 10x3/uL (0.0-0.2); %Basophils 0.3 % (0.0-1.0); %Eosinophils 1.3 % (0.0-10.0); %Monocytes 11.7 % (0.0-10.0); %Neutrophils 64.8 % (42.0-75.0); Hematocrit 26.9 % (42.0-52.0); Hemoglobin 8.7 g/dL (14.0-18.0); Mean Corpuscular HGB CONC 32.3 g/dL (32.0-36.0); Mean Corpuscular Hemoglobin 29.7 pg (27.0-31.0); Mean Corpuscular Volume 91.8 fL (78.0-98.0); Mean Platelet Volume 9.5 fL (7.4-10.4); Platelet Count 303 10x3/uL (130-400); RBC Distribution Width 14.8 % (11.5-14.5); Red Blood Cell (RBC) Count 2.93 mill/uL (4.70-6.10)
[2024-02-16 06:46] LABS: Phosphorus 8.8 mg/dL (2.3-4.7)
[2024-02-16 06:57] LABS: ALT (SGPT) 8 U/L (8-55); AST (SGOT) 48 U/L (5-34); Albumin 2.7 g/dL (3.5-5.0); Alkaline Phosphatase 126 U/L (40-110); Anion Gap 24 mmol/L (10-20); BUN (Urea Nitrogen) 97 mg/dL (8.4-25.7); Bilirubin, Total 0.4 mg/dL (0.2-1.2); Calc. Creatinine Clearance 9 mL/min (70-130); Calcium 7.5 mg/dL (7.8-10.44); Carbon Dioxide 16 mmol/L (22-29); Chloride 102 mmol/L (98-107); Estimated GFR 3; Globulin 4.6 g/dL (2.4-3.5); Glucose 93 mg/dL (70-105); Magnesium 2.1 mg/dL (1.6-2.6); Potassium 4.7 mmol/L (3.5-5.1); Protein, Total 7.3 g/dL (6.0-8.3); Sodium 137 mmol/L (136-145)
[2024-02-16] MEDS: Sevelamer Carbonate 800 MG TAB PO SCH (07:55)
[2024-02-16] MEDS ORDERED: Heparin 10,000 UNITS/ 10 ML VIAL ONE (14:42)
[2024-02-16] MEDS: EPOETIN ALFA-EPBX (ESRD) 10,000 UNITS/ML VIAL SC SCH (23:03)
[2024-02-17 05:07] LABS: #Basophils 0.05 10x3/uL (0.0-0.2); %Basophils 0.4 % (0.0-1.0); %Eosinophils 1.1 % (0.0-10.0); %Lymphocytes 18.8 % (21.0-51.0); %Monocytes 9.9 % (0.0-10.0); %Neutrophils 66.6 % (42.0-75.0); Hematocrit 28.7 % (42.0-52.0); Hemoglobin 9.2 g/dL (14.0-18.0); Mean Corpuscular HGB CONC 32.1 g/dL (32.0-36.0); Mean Corpuscular Hemoglobin 29.6 pg (27.0-31.0); Mean Corpuscular Volume 92.3 fL (78.0-98.0); Mean Platelet Volume 9.3 fL (7.4-10.4); Platelet Count 377 10x3/uL (130-400); RBC Distribution Width 14.9 % (11.5-14.5); Red Blood Cell (RBC) Count 3.11 mill/uL (4.70-6.10)
[2024-02-17 05:30] LABS: ALT (SGPT) Less than 5 U/L (8-55); AST (SGOT) 34 U/L (5-34); Alkaline Phosphatase 136 U/L (40-110); Anion Gap 18 mmol/L (10-20); BUN (Urea Nitrogen) 53 mg/dL (8.4-25.7); Bilirubin, Total 0.3 mg/dL (0.2-1.2); Calc. Creatinine Clearance 13 mL/min (70-130); Calcium 8.3 mg/dL (7.8-10.44); Carbon Dioxide 22 mmol/L (22-29); Chloride 102 mmol/L (98-107); Estimated GFR 5; Globulin 5.2 g/dL (2.4-3.5); Glucose 112 mg/dL (70-105); Potassium 4.7 mmol/L (3.5-5.1); Protein, Total 8.2 g/dL (6.0-8.3); Sodium 137 mmol/L (136-145)
[2024-02-17] MEDS ORDERED: Heparin 10,000 UNITS/ 10 ML VIAL ONE (09:55)
[2024-02-18] MEDS ORDERED: Ondansetron ODT 4 MG TAB PO PRN (01:38)
[2024-02-18 04:59] LABS: #Basophils 0.06 10x3/uL (0.0-0.2); %Basophils 0.5 % (0.0-1.0); %Eosinophils 0.9 % (0.0-10.0); %Monocytes 8.9 % (0.0-10.0); %Neutrophils 74.1 % (42.0-75.0); Hemoglobin 8.7 g/dL (14.0-18.0); Mean Corpuscular HGB CONC 31.1 g/dL (32.0-36.0); Mean Corpuscular Hemoglobin 29.2 pg (27.0-31.0); Mean Platelet Volume 9.2 fL (7.4-10.4); Platelet Count 399 10x3/uL (130-400); RBC Distribution Width 14.8 % (11.5-14.5); Red Blood Cell (RBC) Count 2.98 mill/uL (4.70-6.10)
[2024-02-18 05:32] LABS: ALT (SGPT) Less than 5 U/L (8-55); AST (SGOT) 30 U/L (5-34); Alkaline Phosphatase 124 U/L (40-110); Anion Gap 17 mmol/L (10-20); BUN (Urea Nitrogen) 39 mg/dL (8.4-25.7); Bilirubin, Total 0.3 mg/dL (0.2-1.2); Calc. Creatinine Clearance 18 mL/min (70-130); Calcium 8.2 mg/dL (7.8-10.44); Carbon Dioxide 23 mmol/L (22-29); Chloride 100 mmol/L (98-107); Estimated GFR 8; Glucose 106 mg/dL (70-105); Sodium 135 mmol/L (136-145)
[2024-02-18 06:45] LABS: Magnesium 1.9 mg/dL (1.6-2.6); Phosphorus 4.3 mg/dL (2.3-4.7)
[2024-02-18] MEDS ORDERED: Ondansetron PF 4 MG/2 ML Vial ONE (08:06)
[2024-02-18] MEDS ORDERED: Glycopyrrolate 0.2 MG/ML 5 ML SYRINGE ONE (08:06)
[2024-02-18] MEDS ORDERED: PHENYLEPHRINE-NS 100 MCG/ML 10 ML SYRINGE ONE (08:06)
[2024-02-18] MEDS ORDERED: PROPOFOL 20 ML ONE (08:06)
[2024-02-18] MEDS ORDERED: Dexamethasone 20 MG/5 ML VIAL ONE (08:06)
[2024-02-18] MEDS ORDERED: Midazolam HCl 2 mg/2 ml Vial ONE (08:06)
[2024-02-18] MEDS ORDERED: Lidocaine 2% PF 5 ML VIAL ONE ×2 (08:06→08:16)
[2024-02-18] MEDS ORDERED: fentaNYL 50 mcg/mL 1 mL Vial ONE ×2 (08:06→09:48)
[2024-02-18] MEDS ORDERED: EPINEPHrine 1 MG/ML VIAL ONE (08:16)
[2024-02-18] MEDS ORDERED: Heparin 10,000 UNITS/ 10 ML VIAL ONE (08:16)
[2024-02-18] MEDS ORDERED: Bupivacaine PF 0.5% 30 ML VIAL ONE (08:17)
[2024-02-18] MEDS ORDERED: Albuterol HFA (OR) 200 PUFF INH ONE (09:33)
[2024-02-18] MEDS ORDERED: CEFAZOLIN 1 GM VIAL ONE (09:40)
[2024-02-19 04:51] LABS: #Basophils 0.05 10x3/uL (0.0-0.2); %Basophils 0.3 % (0.0-1.0); %Eosinophils 0.3 % (0.0-10.0); %Lymphocytes 11.2 % (21.0-51.0); %Monocytes 8.3 % (0.0-10.0); %Neutrophils 78.4 % (42.0-75.0); Hematocrit 25.6 % (42.0-52.0); Hemoglobin 7.9 g/dL (14.0-18.0); Mean Corpuscular HGB CONC 30.9 g/dL (32.0-36.0); Mean Corpuscular Hemoglobin 29.6 pg (27.0-31.0); Mean Corpuscular Volume 95.9 fL (78.0-98.0); Platelet Count 383 10x3/uL (130-400); RBC Distribution Width 14.9 % (11.5-14.5); Red Blood Cell (RBC) Count 2.67 mill/uL (4.70-6.10)
[2024-02-19 05:13] LABS: ALT (SGPT) Less than 5 U/L (8-55); AST (SGOT) 31 U/L (5-34); Albumin 2.9 g/dL (3.5-5.0); Alkaline Phosphatase 98 U/L (40-110); Anion Gap 22 mmol/L (10-20); BUN (Urea Nitrogen) 57 mg/dL (8.4-25.7); Bilirubin, Total 0.2 mg/dL (0.2-1.2); Calc. Creatinine Clearance 13 mL/min (70-130); Calcium 8.1 mg/dL (7.8-10.44); Carbon Dioxide 15 mmol/L (22-29); Chloride 101 mmol/L (98-107); Estimated GFR 5; Globulin 4.7 g/dL (2.4-3.5); Glucose 115 mg/dL (70-105); Potassium 4.9 mmol/L (3.5-5.1); Protein, Total 7.6 g/dL (6.0-8.3); Sodium 133 mmol/L (136-145)
[2024-02-19] MEDS ORDERED: Heparin 10,000 UNITS/ 10 ML VIAL ONE (10:01)
[2024-02-19 14:44] LABS: ALT (SGPT) Less than 5 U/L (8-55); AST (SGOT) 31 U/L (5-34); Albumin 3.1 g/dL (3.5-5.0); Alkaline Phosphatase 108 U/L (40-110); Anion Gap 15 mmol/L (10-20); BUN (Urea Nitrogen) 22 mg/dL (8.4-25.7); Bilirubin, Total 0.3 mg/dL (0.2-1.2); Calc. Creatinine Clearance 28 mL/min (70-130); Calcium 8.5 mg/dL (7.8-10.44); Carbon Dioxide 25 mmol/L (22-29); Chloride 99 mmol/L (98-107); Estimated GFR 14; Glucose 96 mg/dL (70-105); Potassium 3.5 mmol/L (3.5-5.1); Protein, Total 8.1 g/dL (6.0-8.3); Sodium 135 mmol/L (136-145)
[2024-02-19 16:23] VITALS: BP 175/99; TEMP 99
[2024-02-23] MEDS ORDERED: EPOETIN ALFA-EPBX (ESRD) 10,000 UNITS/ML VIAL SC SCH (12:00)
== END 2024-02-19 16:45 | disposition home or self-care (01) | DRG 674 ==
LOC: ERS 11:06 → 2NO 18:30
PROVIDERS: ADMIT Emergency Medicine; ATTEND Emergency Medicine
PROC: 0JH60XZ Insertion of Tunneled Vascular Access Device into Chest Subcutaneous Tissue and Fascia, Open Approach (ICD-10-PCS; principal; 2024-02-18)
PROC: 02HV33Z Insertion of Infusion Device into Superior Vena Cava, Percutaneous Approach (ICD-10-PCS; 2024-02-18)
PROC: B5181ZA Fluoroscopy of Superior Vena Cava using Low Osmolar Contrast, Guidance (ICD-10-PCS; 2024-02-18)
PROC: B548ZZA Ultrasonography of Superior Vena Cava, Guidance (ICD-10-PCS; 2024-02-18)
DX: I12.0 Hypertensive chronic kidney disease with stage 5 chronic kidney disease or end stage renal disease (principal); E87.1 Hypo-osmolality and hyponatremia; N39.0 Urinary tract infection, site not specified; R78.81 Bacteremia; N18.6 End stage renal disease; K21.9 Gastro-esophageal reflux disease without esophagitis; Z99.2 Dependence on renal dialysis; Z79.890 Hormone replacement therapy; E03.9 Hypothyroidism, unspecified; Z79.899 Other long term (current) drug therapy; R73.9 Hyperglycemia, unspecified; R73.03 Prediabetes; R74.01 Elevation of levels of liver transaminase levels
CPT/HCPCS: 36415; 36416; 80053; 81001; 83036; 83605; 83735; 84100; 84484; 85025; 87040; 87086; 93005; 96365; A6258; C1750; J0171; J0360; J0665; J0690; J1100; J1644; J2250; J2405; J2704; J3010

== ENCOUNTER 2024-10-11 20:24 | Inpatient (IN) | payer BC ==
[2024-10-11 21:08] LABS: #Basophils 0.03 10x3/uL (0.0-0.2); #Eosinophils 0.05 10x3/uL (0.0-0.7); #Monocytes 0.42 10x3/uL (0.11-0.59); #Neutrophils 6.15 10x3/uL (1.40-6.50); %Basophils 0.4 % (0.0-1.0); %Eosinophils 0.7 % (0.0-10.0); %Lymphocytes 11.9 % (21.0-51.0); %Monocytes 5.5 % (0.0-10.0); %Neutrophils 81.1 % (42.0-75.0); Hematocrit 35.5 % (42.0-52.0); Hemoglobin 11.5 g/dL (14.0-18.0); Mean Corpuscular Hemoglobin 30.6 pg (27.0-31.0); Mean Corpuscular Volume 94.4 fL (78.0-98.0); Platelet Count 296 10x3/uL (130-400); Red Blood Cell (RBC) Count 3.76 mill/uL (4.70-6.10); White Blood Cell (WBC) Count 7.58 10x3/uL (4.8-10.8)
[2024-10-11] MEDS ORDERED: CALCIUM GLUC 1 GM/NS 50 ML IV Bag ONE ×2 (21:32→22:17)
[2024-10-11 22:11] LABS: ALT (SGPT) 13 U/L (Less than 45); AST (SGOT) 43 U/L (11-34); Albumin 3.9 g/dL (3.1-4.5); Alkaline Phosphatase 88 U/L (40-110); Anion Gap 26 mmol/L (10-20); BUN (Urea Nitrogen) 92 mg/dL (8.4-25.7); Bilirubin, Total 0.5 mg/dL (0.3-1.2); Calc. Creatinine Clearance 0 mL/min (70-130); Calcium 8.0 mg/dL (7.8-10.44); Carbon Dioxide 20 mmol/L (22-29); Chloride 101 mmol/L (98-107); Globulin 4.8 g/dL (2.4-3.5); Glucose 87 mg/dL (70-105); Lipase 55 U/L (8-78); Magnesium 1.9 mg/dL (1.6-2.6); Potassium 8.8 mmol/L (3.5-5.1); Sodium 138 mmol/L (136-145)
[2024-10-11] MEDS ORDERED: Albuterol 2.5 MG (3 mL) NEB ONE (22:17)
[2024-10-11] MEDS ORDERED: Sodium Bicarb 50 MEQ/50 ML Abboject 8.4% SYRINGE ONE (22:18)
[2024-10-11] MEDS ORDERED: Dextrose 50% Abboject 50 ML SYRINGE ONE (22:18)
[2024-10-12] MEDS: Sodium Bicarb 50 MEQ/50 ML Abboject 8.4% SYRINGE IVP SCH (00:16)
[2024-10-12 00:17] VITALS: BMI 40.0
[2024-10-12 04:30] LABS: #Basophils 0.03 10x3/uL (0.0-0.2); #Eosinophils 0.05 10x3/uL (0.0-0.7); #Monocytes 0.43 10x3/uL (0.11-0.59); #Neutrophils 3.44 10x3/uL (1.40-6.50); %Basophils 0.6 % (0.0-1.0); %Eosinophils 0.9 % (0.0-10.0); %Lymphocytes 26.8 % (21.0-51.0); %Monocytes 7.9 % (0.0-10.0); %Neutrophils 63.6 % (42.0-75.0); Hematocrit 32.8 % (42.0-52.0); Hemoglobin 10.8 g/dL (14.0-18.0); Mean Corpuscular Hemoglobin 30.6 pg (27.0-31.0); Mean Corpuscular Volume 92.9 fL (78.0-98.0); Platelet Count 279 10x3/uL (130-400); Red Blood Cell (RBC) Count 3.53 mill/uL (4.70-6.10); White Blood Cell (WBC) Count 5.41 10x3/uL (4.8-10.8)
[2024-10-12 04:53] LABS: Influenza A by NAA Not Detected (NotDetected); Influenza B by NAA Not Detected (NotDetected); SARS-CoV-2 NAA Rapid Test Not Detected (NotDetected)
[2024-10-12 05:43] LABS: ALT (SGPT) 13 U/L (Less than 45); AST (SGOT) 40 U/L (11-34); Albumin 3.8 g/dL (3.1-4.5); Alkaline Phosphatase 81 U/L (40-110); Anion Gap 17 mmol/L (10-20); BUN (Urea Nitrogen) 27 mg/dL (8.4-25.7); Bilirubin, Total 0.6 mg/dL (0.3-1.2); Calc. Creatinine Clearance 28 mL/min (70-130); Calcium 8.7 mg/dL (7.8-10.44); Carbon Dioxide 26 mmol/L (22-29); Chloride 99 mmol/L (98-107); Globulin 4.4 g/dL (2.4-3.5); Glucose 73 mg/dL (70-105); Magnesium 1.9 mg/dL (1.6-2.6); Potassium 3.3 mmol/L (3.5-5.1); Sodium 139 mmol/L (136-145)
[2024-10-12] MEDS ORDERED: Famotidine 20 MG TAB PO SCH (09:00)
[2024-10-12] MEDS: Heparin 5,000 UNITS/ML VIAL SC SCH (09:04)
[2024-10-12] MEDS: Carvedilol 25 MG TAB PO SCH (09:04)
[2024-10-12] MEDS: Pantoprazole 40 MG DR.TAB PO SCH (09:04)
[2024-10-12] MEDS ORDERED: Heparin 10,000 UNITS/ 10 ML VIAL ONE (09:47)
[2024-10-12] MEDS: cloNIDine 0.1 MG TAB PO PRN (11:14)
[2024-10-12 14:34] LABS: Anion Gap 18 mmol/L (10-20); BUN (Urea Nitrogen) 42 mg/dL (8.4-25.7); Calc. Creatinine Clearance 15 mL/min (70-130); Calcium 8.3 mg/dL (7.8-10.44); Carbon Dioxide 28 mmol/L (22-29); Chloride 96 mmol/L (98-107); Glucose 96 mg/dL (70-105); Potassium 5.7 mmol/L (3.5-5.1); Sodium 136 mmol/L (136-145)
[2024-10-12 19:04] LABS: Anion Gap 21 mmol/L (10-20); BUN (Urea Nitrogen) 46 mg/dL (8.4-25.7); Calc. Creatinine Clearance 13 mL/min (70-130); Calcium 8.2 mg/dL (7.8-10.44); Carbon Dioxide 25 mmol/L (22-29); Chloride 97 mmol/L (98-107); Glucose 102 mg/dL (70-105); Potassium 5.5 mmol/L (3.5-5.1); Sodium 137 mmol/L (136-145)
[2024-10-12] MEDS: Mupirocin 1 GM TUBE TP SCH (20:31)
[2024-10-13 06:02] LABS: #Basophils 0.03 10x3/uL (0.0-0.2); #Eosinophils 0.09 10x3/uL (0.0-0.7); #Monocytes 0.61 10x3/uL (0.11-0.59); #Neutrophils 4.95 10x3/uL (1.40-6.50); %Basophils 0.4 % (0.0-1.0); %Eosinophils 1.3 % (0.0-10.0); %Lymphocytes 15.8 % (21.0-51.0); %Monocytes 9.0 % (0.0-10.0); %Neutrophils 73.2 % (42.0-75.0); Hematocrit 33.0 % (42.0-52.0); Hemoglobin 10.7 g/dL (14.0-18.0); Mean Corpuscular Hemoglobin 30.7 pg (27.0-31.0); Mean Corpuscular Volume 94.8 fL (78.0-98.0); Platelet Count 232 10x3/uL (130-400); Red Blood Cell (RBC) Count 3.48 mill/uL (4.70-6.10); White Blood Cell (WBC) Count 6.77 10x3/uL (4.8-10.8)
[2024-10-13 06:13] LABS: ALT (SGPT) 19 U/L (Less than 45); AST (SGOT) 39 U/L (11-34); Albumin 3.5 g/dL (3.1-4.5); Alkaline Phosphatase 81 U/L (40-110); Anion Gap 22 mmol/L (10-20); BUN (Urea Nitrogen) 56 mg/dL (8.4-25.7); Bilirubin, Total 0.5 mg/dL (0.3-1.2); Calc. Creatinine Clearance 12 mL/min (70-130); Calcium 7.6 mg/dL (7.8-10.44); Carbon Dioxide 25 mmol/L (22-29); Chloride 97 mmol/L (98-107); Globulin 4.0 g/dL (2.4-3.5); Glucose 100 mg/dL (70-105); Potassium 6.5 mmol/L (3.5-5.1); Sodium 137 mmol/L (136-145)
[2024-10-13 07:47] LABS: Potassium 6.0 mmol/L (3.5-5.1)
[2024-10-13] MEDS ORDERED: Cabozantinib S-Malate [Cabometyx] 40 MG Tablet PO SCH (09:00)
[2024-10-13] MEDS ORDERED: Heparin 10,000 UNITS/ 10 ML VIAL ONE (09:37)
[2024-10-13] MEDS: Simethicone Chewable 80 MG TAB PO PRN (10:35)
[2024-10-13 13:47] LABS: Potassium 3.8 mmol/L (3.5-5.1)
[2024-10-14] MEDS: Acetaminophen 325 MG TAB PO PRN (04:24)
[2024-10-14 05:40] LABS: #Basophils 0.03 10x3/uL (0.0-0.2); #Eosinophils 0.09 10x3/uL (0.0-0.7); #Monocytes 0.59 10x3/uL (0.11-0.59); #Neutrophils 3.14 10x3/uL (1.40-6.50); %Basophils 0.6 % (0.0-1.0); %Eosinophils 1.8 % (0.0-10.0); %Lymphocytes 23.2 % (21.0-51.0); %Monocytes 11.7 % (0.0-10.0); %Neutrophils 62.3 % (42.0-75.0); Hematocrit 32.9 % (42.0-52.0); Hemoglobin 10.6 g/dL (14.0-18.0); Mean Corpuscular Hemoglobin 30.8 pg (27.0-31.0); Mean Corpuscular Volume 95.6 fL (78.0-98.0); Platelet Count 231 10x3/uL (130-400); Red Blood Cell (RBC) Count 3.44 mill/uL (4.70-6.10); White Blood Cell (WBC) Count 5.04 10x3/uL (4.8-10.8)
[2024-10-14 05:59] LABS: ALT (SGPT) 26 U/L (Less than 45); AST (SGOT) 48 U/L (11-34); Albumin 3.6 g/dL (3.1-4.5); Alkaline Phosphatase 89 U/L (40-110); Anion Gap 17 mmol/L (10-20); BUN (Urea Nitrogen) 33 mg/dL (8.4-25.7); Bilirubin, Total 0.6 mg/dL (0.3-1.2); Calc. Creatinine Clearance 15 mL/min (70-130); Calcium 7.9 mg/dL (7.8-10.44); Carbon Dioxide 27 mmol/L (22-29); Chloride 97 mmol/L (98-107); Globulin 4.4 g/dL (2.4-3.5); Glucose 137 mg/dL (70-105); Potassium 4.4 mmol/L (3.5-5.1); Sodium 137 mmol/L (136-145)
[2024-10-14 14:11] LABS: Anion Gap 19 mmol/L (10-20); BUN (Urea Nitrogen) 40 mg/dL (8.4-25.7); Calc. Creatinine Clearance 14 mL/min (70-130); Calcium 7.5 mg/dL (7.8-10.44); Carbon Dioxide 25 mmol/L (22-29); Chloride 97 mmol/L (98-107); Glucose 129 mg/dL (70-105); Potassium 4.7 mmol/L (3.5-5.1); Sodium 136 mmol/L (136-145)
[2024-10-15 07:06] LABS: #Basophils Less than 0.03 10x3/uL (0.0-0.2); #Eosinophils 0.13 10x3/uL (0.0-0.7); #Monocytes 0.68 10x3/uL (0.11-0.59); #Neutrophils 3.89 10x3/uL (1.40-6.50); %Basophils 0.3 % (0.0-1.0); %Eosinophils 2.3 % (0.0-10.0); %Lymphocytes 17.7 % (21.0-51.0); %Monocytes 11.8 % (0.0-10.0); %Neutrophils 67.7 % (42.0-75.0); Hematocrit 31.0 % (42.0-52.0); Hemoglobin 10.1 g/dL (14.0-18.0); Mean Corpuscular Hemoglobin 30.8 pg (27.0-31.0); Mean Corpuscular Volume 94.5 fL (78.0-98.0); Platelet Count 223 10x3/uL (130-400); Red Blood Cell (RBC) Count 3.28 mill/uL (4.70-6.10); White Blood Cell (WBC) Count 5.75 10x3/uL (4.8-10.8)
[2024-10-15 07:19] LABS: ALT (SGPT) 19 U/L (Less than 45); AST (SGOT) 33 U/L (11-34); Albumin 3.4 g/dL (3.1-4.5); Alkaline Phosphatase 75 U/L (40-110); Anion Gap 20 mmol/L (10-20); BUN (Urea Nitrogen) 47 mg/dL (8.4-25.7); Bilirubin, Total 0.5 mg/dL (0.3-1.2); Calc. Creatinine Clearance 12 mL/min (70-130); Calcium 7.4 mg/dL (7.8-10.44); Carbon Dioxide 25 mmol/L (22-29); Chloride 100 mmol/L (98-107); Globulin 3.8 g/dL (2.4-3.5); Glucose 89 mg/dL (70-105); Potassium 5.0 mmol/L (3.5-5.1); Sodium 140 mmol/L (136-145)
[2024-10-15] MEDS ORDERED: Heparin 10,000 UNITS/ 10 ML VIAL ONE (11:17)
[2024-10-15 17:36] VITALS: BP 150/90; TEMP 98.9
== END 2024-10-15 17:20 | disposition home or self-care (01) | DRG 640 ==
LOC: ERS 20:24 → CCU 22:38 → T4-B 10-12 11:31
PROVIDERS: ADMIT Family Medicine; ATTEND Family Medicine
DX: E87.5 Hyperkalemia (principal); N18.6 End stage renal disease; C64.9 Malignant neoplasm of unspecified kidney, except renal pelvis; D84.9 Immunodeficiency, unspecified; I12.0 Hypertensive chronic kidney disease with stage 5 chronic kidney disease or end stage renal disease; E03.9 Hypothyroidism, unspecified; D64.9 Anemia, unspecified; E87.20 Acidosis, unspecified; R73.03 Prediabetes; N18.9 Chronic kidney disease, unspecified; E87.70 Fluid overload, unspecified; Z79.899 Other long term (current) drug therapy; Z99.2 Dependence on renal dialysis; Z98.890 Other specified postprocedural states; Z92.21 Personal history of antineoplastic chemotherapy; Z72.0 Tobacco use; Z80.9 Family history of malignant neoplasm, unspecified; Z79.890 Hormone replacement therapy
CPT/HCPCS: 36415; 36416; 70450; 71045; 80053; 83605; 83615; 83690; 83735; 83880; 84100; 84484; 84550; 85025; 87040; 87636; 93005; 93010; 96365; 96366; 96375; J0613; J1644; J1815; J7611; J7999; Q0162

== ENCOUNTER 2024-11-07 08:34 | Outpatient (CLI) | payer BC ==
[2024-11-07] MEDS ORDERED: Iopamidol 370 76% 100 ML VIAL ONE (14:45)
== END 2024-11-07 08:35 | disposition home or self-care (01) ==
LOC: CT 08:34
PROVIDERS: ATTEND Internal Medicine
DX: C64.2 Malignant neoplasm of left kidney, except renal pelvis (principal); M54.6 Pain in thoracic spine; M54.2 Cervicalgia; N28.89 Other specified disorders of kidney and ureter; M89.9 Disorder of bone, unspecified
CPT/HCPCS: 71260; 74177; J1642; Q9967

== ENCOUNTER 2024-12-18 09:34 | Emergency (ER) | payer BC ==
[2024-12-18 10:26] LABS: #Basophils Less than 0.03 10x3/uL (0.0-0.2); #Eosinophils 0.11 10x3/uL (0.0-0.7); #Monocytes 0.55 10x3/uL (0.11-0.59); #Neutrophils 4.87 10x3/uL (1.40-6.50); %Basophils 0.3 % (0.0-1.0); %Eosinophils 1.6 % (0.0-10.0); %Lymphocytes 16.3 % (21.0-51.0); %Monocytes 8.2 % (0.0-10.0); %Neutrophils 73.2 % (42.0-75.0); Hematocrit 32.8 % (42.0-52.0); Hemoglobin 10.6 g/dL (14.0-18.0); Mean Corpuscular Hemoglobin 31.5 pg (27.0-31.0); Mean Corpuscular Volume 97.6 fL (78.0-98.0); Platelet Count 222 10x3/uL (130-400); Red Blood Cell (RBC) Count 3.36 mill/uL (4.70-6.10); White Blood Cell (WBC) Count 6.67 10x3/uL (4.8-10.8)
[2024-12-18 10:57] LABS: ALT (SGPT) 11 U/L (Less than 45); AST (SGOT) 29 U/L (11-34); Albumin 3.8 g/dL (3.1-4.5); Alkaline Phosphatase 65 U/L (40-110); Anion Gap 18 mmol/L (10-20); BUN (Urea Nitrogen) 68 mg/dL (8.4-25.7); Bilirubin, Total 0.6 mg/dL (0.3-1.2); Calc. Creatinine Clearance 0 mL/min (70-130); Calcium 9.3 mg/dL (7.8-10.44); Carbon Dioxide 23 mmol/L (22-29); Chloride 102 mmol/L (98-107); Globulin 4.1 g/dL (2.4-3.5); Glucose 109 mg/dL (70-105); Potassium 5.3 mmol/L (3.5-5.1); Sodium 138 mmol/L (136-145)
[2024-12-18] MEDS ORDERED: Ondansetron PF 4 MG/2 ML Vial ONE (11:29)
== END 2024-12-18 12:00 | disposition home or self-care (01) ==
LOC: ERS 09:34
DX: R11.2 Nausea with vomiting, unspecified (principal); I12.0 Hypertensive chronic kidney disease with stage 5 chronic kidney disease or end stage renal disease; N18.6 End stage renal disease; F17.290 Nicotine dependence, other tobacco product, uncomplicated; E03.9 Hypothyroidism, unspecified; Z99.2 Dependence on renal dialysis; Z79.899 Other long term (current) drug therapy
CPT/HCPCS: 71250; 74177; 80053; 85025; 93005; 96374; J2405

== ENCOUNTER 2024-12-19 02:16 | Inpatient (IN) | payer BC ==
[2024-12-19 03:27] LABS: #Basophils 0.03 10x3/uL (0.0-0.2); #Eosinophils 0.13 10x3/uL (0.0-0.7); #Monocytes 0.59 10x3/uL (0.11-0.59); #Neutrophils 5.77 10x3/uL (1.40-6.50); %Basophils 0.4 % (0.0-1.0); %Eosinophils 1.8 % (0.0-10.0); %Lymphocytes 11.9 % (21.0-51.0); %Monocytes 8.0 % (0.0-10.0); %Neutrophils 77.6 % (42.0-75.0); Hematocrit 31.2 % (42.0-52.0); Hemoglobin 10.3 g/dL (14.0-18.0); Mean Corpuscular Hemoglobin 32.8 pg (27.0-31.0); Mean Corpuscular Volume 99.4 fL (78.0-98.0); Platelet Count 205 10x3/uL (130-400); Red Blood Cell (RBC) Count 3.14 mill/uL (4.70-6.10); White Blood Cell (WBC) Count 7.42 10x3/uL (4.8-10.8)
[2024-12-19 03:43] LABS: ALT (SGPT) 9 U/L (Less than 45); AST (SGOT) 28 U/L (11-34); Albumin 3.6 g/dL (3.1-4.5); Alkaline Phosphatase 67 U/L (40-110); Anion Gap 24 mmol/L (10-20); BUN (Urea Nitrogen) 78 mg/dL (8.4-25.7); Bilirubin, Total 0.6 mg/dL (0.3-1.2); Calc. Creatinine Clearance 0 mL/min (70-130); Calcium 8.8 mg/dL (7.8-10.44); Carbon Dioxide 24 mmol/L (22-29); Chloride 100 mmol/L (98-107); Globulin 4.0 g/dL (2.4-3.5); Glucose 110 mg/dL (70-105); Potassium 5.7 mmol/L (3.5-5.1); Sodium 142 mmol/L (136-145)
[2024-12-19] MEDS ORDERED: CALCIUM GLUC 1 GM/NS 50 ML IV Bag ONE (03:58)
[2024-12-19] MEDS ORDERED: niCARdipine 25 MG/10 ML SDV ONE (06:06)
[2024-12-19] MEDS: niCARdipine 25 MG in Sodium Chloride 0.9% 250 ML 250 ML IVPB SCH (06:23)
[2024-12-19 07:37] LABS: Cardiac Risk 3.5 (Less than 4.5); Cholesterol 97.0 mg/dl (< 200 Desired); HDL Cholesterol 28.0 mg/dL (>60 Neg Risk); LDL Cholesterol, Calculated 53.0 mg/dL; Triglycerides 80.0 mg/dL (Less than 150)
[2024-12-19] MEDS ORDERED: Carvedilol 25 MG TAB ONE (11:45)
[2024-12-19] MEDS: Carvedilol 25 MG TAB PO SCH ×2 (11:53→20:50)
[2024-12-19] MEDS ORDERED: Iopamidol 370 76% 100 ML VIAL ONE (12:16)
[2024-12-19] MEDS ORDERED: Iopamidol-370 76% 500 ML MDV (1 ML CHARGE) ONE (12:19)
[2024-12-19] MEDS: Heparin 10,000 UNITS/ 10 ML VIAL SLOW IVP SCH (13:38)
[2024-12-19 13:49] VITALS: BMI 37.3
[2024-12-19] MEDS: NIFEdipine XL 60 MG ER.TAB PO SCH (14:16)
[2024-12-19] MEDS: Ondansetron PF 4 MG/2 ML Vial IVP PRN (15:00)
[2024-12-19 20:45] LABS: Albumin 4.2 g/dL (3.1-4.5); Anion Gap 26 mmol/L (10-20); BUN (Urea Nitrogen) 41 mg/dL (8.4-25.7); BUN/Creatinine Ratio 4.15; Calc. Creatinine Clearance 13 mL/min (70-130); Calcium 10.8 mg/dL (7.8-10.44); Carbon Dioxide 21 mmol/L (22-29); Chloride 98 mmol/L (98-107); Glucose 120 mg/dL (70-105); Potassium 5.0 mmol/L (3.5-5.1); Sodium 140 mmol/L (136-145)
[2024-12-20] MEDS: Acetaminophen 325 MG TAB ONE (06:20)
[2024-12-20 08:45] LABS: Hematocrit 34.4 % (42.0-52.0); Hemoglobin 11.2 g/dL (14.0-18.0); Mean Corpuscular Hemoglobin 32.5 pg (27.0-31.0); Mean Corpuscular Volume 99.7 fL (78.0-98.0); Platelet Count 235 10x3/uL (130-400); Red Blood Cell (RBC) Count 3.45 mill/uL (4.70-6.10); White Blood Cell (WBC) Count 5.55 10x3/uL (4.8-10.8)
[2024-12-20 08:46] LABS: #Basophils 0.02 10x3/uL (0.0-0.2); #Eosinophils 0.22 10x3/uL (0.0-0.7); #Monocytes 0.67 10x3/uL (0.11-0.59); #Neutrophils 3.88 10x3/uL (1.40-6.50); %Basophils 0.4 % (0.0-1.0); %Eosinophils 4.0 % (0.0-10.0); %Lymphocytes 13.3 % (21.0-51.0); %Monocytes 12.1 % (0.0-10.0); %Neutrophils 69.8 % (42.0-75.0)
[2024-12-20] MEDS ORDERED: NIFEdipine XL 60 MG ER.TAB PO SCH (09:00)
[2024-12-20] MEDS: NIFEdipine XL 90 MG ER.TAB PO SCH (10:13)
[2024-12-20] MEDS: Pantoprazole 40 MG DR.TAB PO SCH (10:20)
[2024-12-20 12:59] LABS: ALT (SGPT) 10 U/L (Less than 45); AST (SGOT) 31 U/L (11-34); Albumin 3.9 g/dL (3.1-4.5); Alkaline Phosphatase 70 U/L (40-110); Anion Gap 19 mmol/L (10-20); BUN (Urea Nitrogen) 47 mg/dL (8.4-25.7); Bilirubin, Total 0.6 mg/dL (0.3-1.2); Calc. Creatinine Clearance 10 mL/min (70-130); Calcium 10.2 mg/dL (7.8-10.44); Carbon Dioxide 28 mmol/L (22-29); Chloride 95 mmol/L (98-107); Globulin 4.2 g/dL (2.4-3.5); Glucose 98 mg/dL (70-105); Potassium 5.2 mmol/L (3.5-5.1); Sodium 137 mmol/L (136-145)
[2024-12-20] MEDS: Baclofen 10 MG TAB PO PRN (20:42)
[2024-12-20] MEDS: Acetaminophen 325 MG TAB PO PRN (20:42)
[2024-12-21 04:40] LABS: #Basophils Less than 0.03 10x3/uL (0.0-0.2); #Eosinophils 0.15 10x3/uL (0.0-0.7); #Monocytes 0.77 10x3/uL (0.11-0.59); #Neutrophils 3.37 10x3/uL (1.40-6.50); %Basophils 0.4 % (0.0-1.0); %Eosinophils 2.8 % (0.0-10.0); %Lymphocytes 18.5 % (21.0-51.0); %Monocytes 14.5 % (0.0-10.0); %Neutrophils 63.6 % (42.0-75.0); Hematocrit 33.5 % (42.0-52.0); Hemoglobin 10.6 g/dL (14.0-18.0); Mean Corpuscular Hemoglobin 32.1 pg (27.0-31.0); Mean Corpuscular Volume 101.5 fL (78.0-98.0); Platelet Count 221 10x3/uL (130-400); Red Blood Cell (RBC) Count 3.30 mill/uL (4.70-6.10); White Blood Cell (WBC) Count 5.30 10x3/uL (4.8-10.8)
[2024-12-21 05:09] LABS: ALT (SGPT) 10 U/L (Less than 45); AST (SGOT) 25 U/L (11-34); Albumin 3.7 g/dL (3.1-4.5); Alkaline Phosphatase 70 U/L (40-110); Anion Gap 21 mmol/L (10-20); BUN (Urea Nitrogen) 41 mg/dL (8.4-25.7); Bilirubin, Total 0.5 mg/dL (0.3-1.2); Calc. Creatinine Clearance 13 mL/min (70-130); Calcium 9.3 mg/dL (7.8-10.44); Carbon Dioxide 27 mmol/L (22-29); Chloride 98 mmol/L (98-107); Globulin 4.0 g/dL (2.4-3.5); Glucose 118 mg/dL (70-105); Potassium 5.2 mmol/L (3.5-5.1); Sodium 141 mmol/L (136-145)
[2024-12-21 12:43] VITALS: BP 129/66; TEMP 97.6
== END 2024-12-21 14:18 | disposition home or self-care (01) | DRG 304 ==
LOC: ERS 02:16 → ERHOLD 05:33 → CCU 12:33 → 2SE 12-20 15:45
PROVIDERS: ADMIT Family Medicine; ATTEND Family Medicine
DX: I16.1 Hypertensive emergency (principal); N18.6 End stage renal disease; C64.1 Malignant neoplasm of right kidney, except renal pelvis; C79.89 Secondary malignant neoplasm of other specified sites; H53.2 Diplopia; I12.0 Hypertensive chronic kidney disease with stage 5 chronic kidney disease or end stage renal disease; E11.22 Type 2 diabetes mellitus with diabetic chronic kidney disease; F41.9 Anxiety disorder, unspecified; F32.A Depression, unspecified; E03.9 Hypothyroidism, unspecified; F17.210 Nicotine dependence, cigarettes, uncomplicated; E87.5 Hyperkalemia; K21.9 Gastro-esophageal reflux disease without esophagitis; Z82.49 Family history of ischemic heart disease and other diseases of the circulatory system; Z99.2 Dependence on renal dialysis; Z98.890 Other specified postprocedural states; Z92.21 Personal history of antineoplastic chemotherapy; Z79.899 Other long term (current) drug therapy; Z79.890 Hormone replacement therapy; R11.2 Nausea with vomiting, unspecified; F17.290 Nicotine dependence, other tobacco product, uncomplicated
CPT/HCPCS: 36415; 36416; 70450; 70496; 70498; 70551; 71045; 71250; 71275; 74174; 74177; 80053; 80061; 83036; 84443; 84484; 85025; 90935; 93005; 96365; 96374; 96375; 96376; G0257; J0613; J1644; J2405; J7050; Q9967

== ENCOUNTER 2025-01-11 08:46 | Emergency (ER) | payer BC ==
[2025-01-11] MEDS ORDERED: Ondansetron PF 4 MG/2 ML Vial ONE (09:03)
[2025-01-11 09:20] LABS: #Basophils 0.03 10x3/uL (0.0-0.2); #Eosinophils 0.04 10x3/uL (0.0-0.7); #Monocytes 1.15 10x3/uL (0.11-0.59); #Neutrophils 7.36 10x3/uL (1.40-6.50); %Basophils 0.3 % (0.0-1.0); %Eosinophils 0.4 % (0.0-10.0); %Lymphocytes 8.6 % (21.0-51.0); %Monocytes 12.2 % (0.0-10.0); %Neutrophils 78.2 % (42.0-75.0); Hematocrit 29.9 % (42.0-52.0); Hemoglobin 9.7 g/dL (14.0-18.0); Mean Corpuscular Hemoglobin 32.8 pg (27.0-31.0); Mean Corpuscular Volume 101.0 fL (78.0-98.0); Platelet Count 261 10x3/uL (130-400); Red Blood Cell (RBC) Count 2.96 mill/uL (4.70-6.10); White Blood Cell (WBC) Count 9.42 10x3/uL (4.8-10.8)
[2025-01-11 09:34] LABS: ALT (SGPT) 7 U/L (Less than 45); AST (SGOT) 25 U/L (11-34); Albumin 3.5 g/dL (3.1-4.5); Alkaline Phosphatase 56 U/L (40-110); Anion Gap 19 mmol/L (10-20); BUN (Urea Nitrogen) 44 mg/dL (8.4-25.7); Bilirubin, Total 0.6 mg/dL (0.3-1.2); Calc. Creatinine Clearance 0 mL/min (70-130); Calcium 9.3 mg/dL (7.8-10.44); Carbon Dioxide 26 mmol/L (22-29); Chloride 98 mmol/L (98-107); Globulin 3.9 g/dL (2.4-3.5); Glucose 100 mg/dL (70-105); Potassium 4.8 mmol/L (3.5-5.1); Sodium 138 mmol/L (136-145)
== END 2025-01-11 12:51 | disposition home or self-care (01) ==
LOC: ERS 08:46
DX: M25.551 Pain in right hip (principal); G89.29 Other chronic pain; I12.9 Hypertensive chronic kidney disease with stage 1 through stage 4 chronic kidney disease, or unspecified chronic kidney disease; N18.9 Chronic kidney disease, unspecified; E03.9 Hypothyroidism, unspecified; F17.290 Nicotine dependence, other tobacco product, uncomplicated; Z99.2 Dependence on renal dialysis; Z79.899 Other long term (current) drug therapy; Z79.890 Hormone replacement therapy
CPT/HCPCS: 80053; 85025; 93005; 94760; 96374; J2270; J2405